=== PATIENT | male | born 1980 | race Caucasian/White ===

== ENCOUNTER 2020-05-25 02:44 | Emergency (ER) | payer OTHER ==
[2020-05-25 04:13] LABS: ALBUMIN 4.2 g/dL (3.5-5.0); ALKALINE PHOSPHATASE 70 U/L (38-126); ANION GAP 11.6 MEQ/L (5-15); BLOOD UREA NITROGEN 8 mg/dL (9-20); CHLORIDE 104 mmol/L (98-107); Calcium 9.2 mg/dL (8.4-10.2); Carbon Dioxide 26 mmol/L (22-30); Creatinine 1 0.62 mg/dL (0.66-1.25); EST GLOMERULAR FILTRATION RATE > 60.0 ML/MIN; Glucose 121 mg/dL (74-106); Potassium 3.8 mmol/L (3.5-5.1); SGOT/AST 41 U/L (17-59); SGPT/ALT 28 U/L (0-50); SODIUM 138 mmol/L (137-145); Total Protein 7.7 g/dL (6.3-8.2)
[2020-05-25 04:16] LABS: INR 1.22 (0.8-3.0); PROTIME 13.8 SECONDS (8.83-12.87)
[2020-05-25 04:19] LABS: PTT 34.2 SECONDS (24.1-36.1)
[2020-05-25 04:21] LABS: Absolute Neutrophil Ct (ANC) 4.09 (1.4-6.9); BASOPHIL % 0.4 % (0.0-0.4); Basophil (Absolute #) 0.03 (0-0.4); Eosinophil % 2.2 % (0.00-5.0); Eosinophil (Absolute #) 0.17 (0-0.5); Hematocrit 44.7 % (42-50); Hemoglobin 15.7 gm/dl (12.5-18.0); Lymphocyte (Absolute #) 2.76 (1.0-4.6); Mean Cell Volume 86.6 fl (78-100); Mean Corpuscular Hemoglobin 30.4 pg (26-32); Mean Corpuscular Hgb Concent. 35.1 g/dl (32-36); Mean Platelet Volume 11.2 fl (7.5-11.0); Monocyte (Absolute #) 0.84 (0.0-1.3); Monocytes % 10.6 % (0.0-12.0); Neutrophil % 51.8 % (36.0-66.0); Platelet Count 196 K/mm3 (150-450); Red Blood Count 5.16 M/mm3 (4.1-5.6); Red Cell Distribution Width 14.1 % (11.5-14.0); White Blood Count 7.9 K/mm3 (4.0-10.5)
[2020-05-25 04:57] VITALS: BP 147/95; PULSE 78; O2SAT 95
--- NOTE | 2020-05-25 05:03 | ERPHSYRPT ---
- History of Present Illness Time Seen by Provider: 05/25/20 02:58 Source: patient Exam Limitations: no limitations Patient Subjective Stated Complaint: pt c/o lt facial droop and eyes not blinking at the same time Triage Nursing Assessment: pt ambulated into, c/o lt facial droop and eyes not blinking at the same time. Pt's mouth looks normal on appearance, but when pt smiles, rt lip appears lower than left. Eyes appear to blinking simaltaneously but pt states, "I don't feel as if the Lt eye is closing all the way". Pt's speech is clear. Physician History: 40 years old male presented in the ER with chief complaint of difficulty closing left eye and dysesthesia left half of tongue. Patient report he woke up around 630 this evening, was not feeling well without any focal numbness tingling or weakness. He was at work almost 3 hours ago when he developed dysesthesias over the left half of tongue and also noticed that he has difficulty closing his left eye lids. No weakness in the face but some subjective feeling of facial droop on the left but no drooling or difficulty speech or swallow. He denies any visual symptoms. No focal weakness in upper or lower extremities or difficulty ambulation, of feeling dizzy lightheaded or having any history of headache. Denies fever or chills. Denies having history of similar symptoms in the past. Timing/Duration: hour(s), sudden Severity: moderate Baseline/Normal Cognition: alert 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, poor alertness Baseline Gait: walks w/o assistance Allergies/Adverse Reactions: erythromycin base Adverse Reaction (Intermediate, Verified 05/25/20 03:03) Nausea Home Medications: No Reportable Medications [No Reported Medications] 05/25/20 [History] Hx Tetanus, Diphtheria Vaccination/Date Given: No Hx Influenza Vaccination/Date Given: No Hx Pneumococcal Vaccination/Date Given: No Immunizations Up to Date: No Travel Risk - International Travel Have you traveled outside of the country in past 3 weeks: No - Coronavirus Screening Are you exhibiting any of the following symptoms?: No Close contact with a COVID-19 positive Pt in past 14-21 Days: No - Review of Systems Constitutional: No Symptoms Eyes: No Symptoms Ears, Nose, & Throat: No Symptoms Respiratory: No Symptoms Cardiac: No Symptoms Abdominal/Gastrointestinal: No Symptoms Genitourinary Symptoms: No Symptoms Musculoskeletal: No Symptoms Skin: No Symptoms Neurological: Parasthesia Psychological: No Symptoms Endocrine: No Symptoms Hematologic/Lymphatic: No Symptoms Immunological/Allergic: No Symptoms - Past Medical History Pertinent Past Medical History: Yes Neurological History: No Pertinent History ENT History: No Pertinent History Cardiac History: No Pertinent History Respiratory History: Asthma, Sleep Apnea Endocrine Medical History: No Pertinent History Musculoskeletal History: Fractures GI Medical History: No Pertinent History History: No Pertinent History Psycho-Social History: No Pertinent History Male Reproductive Disorders: No Pertinent History - Past Surgical History Past Surgical History: Yes Neuro Surgical History: No Pertinent History Cardiac: No Pertinent History Respiratory: No Pertinent History Gastrointestinal: No Pertinent History Genitourinary: No Pertinent History Musculoskeletal: Orthopedic Surgery Male Surgical History: No Pertinent History Other Surgical History: 2 ankle reconstructions, sleep apnea corrective surgery (uvula removed) - Social History Smoking Status: Former smoker Exposure to second hand smoke: No Drug Use: none Patient Lives Alone: No - Nursing Vital Signs Nursing Vital Signs: Initial Vital Signs Temperature 97.5 F 05/25/20 02:47 Pulse Rate 85 05/25/20 02:47 Respiratory Rate 20 05/25/20 02:47 Blood Pressure 161/93 05/25/20 02:47 O2 Sat by Pulse Oximetry 98 05/25/20 02:47 Pain Scale Pain Intensity 0 - Mikel Coma Scale Best Eye Response ([place]da): (4) open spontaneously Best Verbal Response (Mikel): (5) oriented Best Motor Response ([place]): (6) obeys commands [place] Total: 15 - Physical Exam General Appearance: no apparent distress, alert, anxiety Eye Exam: bilateral eye: normal inspection, PERRL, EOMI Ears, Nose, Throat Exam: normal ENT inspection Neck Exam: normal inspection, non-tender, supple, full range of motion Respiratory: normal breath sounds, lungs clear Cardiovascular: regular rate/rhythm, normal heart sounds Gastrointestinal: soft, normal bowel sounds Back Exam: normal inspection, normal range of motion, No CVA tenderness Extremity Exam: normal inspection, normal range of motion Mental Status: alert, 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, 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 Exam: normal hearing, normal speech, PERRL Coordination/Gait: normal finger to nose, normal gait, normal cerebellar function, negative Romberg's sign Motor/Sensory: no motor deficit, no sensory deficit, no pronator drift, negative Babinski's sign DTR: bicep (R): 2+, bicep (L): 2+, knee (R): 2+, knee (L): 2+ Skin Exam: normal color SpO2 Interpretation: normal SpO2: 95 O2 Delivery: Room Air - Course EKG Interpreted by Me: RATE (84), Sinus Rhythm, NORMAL AXIS, NORMAL INTERVALS, NORMAL QRS Lab/Rad Data: Laboratory Result Diagrams 05/25/20 03:57 05/25/20 03:57 Laboratory Results 05/25/20 05/25/20 05/25/20 Range/Units 03:57 03:57 03:57 WBC 7.9 (4.0-10.5) K/mm3 RBC 5.16 (4.1-5.6) M/mm3 Hgb 15.7 (12.5-18.0) gm/dl Hct 44.7 (42-50) % MCV 86.6 (78-100) fl MCH 30.4 (26-32) pg MCHC 35.1 (32-36) g/dl RDW 14.1 H (11.5-14.0) % Plt Count 196 (150-450) K/mm3 MPV 11.2 H (7.5-11.0) fl Gran % 51.8 (36.0-66.0) % Eos # (Auto) 0.17 (0-0.5) Absolute Lymphs (auto) 2.76 (1.0-4.6) Absolute Monos (auto) 0.84 (0.0-1.3) Lymphocytes % 35.0 (24.0-44.0) % Monocytes % 10.6 (0.0-12.0) % Eosinophils % 2.2 (0.00-5.0) % Basophils % 0.4 (0.0-0.4) % Absolute Granulocytes 4.09 (1.4-6.9) Basophils # 0.03 (0-0.4) PT 13.8 H (8.83-12.87) SECONDS INR 1.22 (0.8-3.0) APTT 34.2 (24.1-36.1) SECONDS Sodium 138 (137-145) mmol/L Potassium 3.8 (3.5-5.1) mmol/L Chloride 104 (98-107) mmol/L Carbon Dioxide 26 (22-30) mmol/L Anion Gap 11.6 (5-15) MEQ/L BUN 8 L (9-20) mg/dL Creatinine 0.62 L (0.66-1.25) mg/dL Estimated GFR > 60.0 ML/MIN Glucose 121 H (74-106) mg/dL POC Glucometer (74 to 106) mg/dL Calcium 9.2 (8.4-10.2) mg/dL Total Bilirubin 0.70 (0.2-1.3) mg/dL AST 41 (17-59) U/L ALT 28 (0-50) U/L Alkaline Phosphatase 70 (38-126) U/L Serum Total Protein 7.7 (6.3-8.2) g/dL Albumin 4.2 (3.5-5.0) g/dL 05/25/20 Range/Units 03:52 WBC (4.0-10.5) K/mm3 RBC (4.1-5.6) M/mm3 Hgb (12.5-18.0) gm/dl Hct (42-50) % MCV (78-100) fl MCH (26-32) pg MCHC (32-36) g/dl RDW (11.5-14.0) % Plt Count (150-450) K/mm3 MPV (7.5-11.0) fl Gran % (36.0-66.0) % Eos # (Auto) (0-0.5) Absolute Lymphs (auto) (1.0-4.6) Absolute Monos (auto) (0.0-1.3) Lymphocytes % (24.0-44.0) % Monocytes % (0.0-12.0) % Eosinophils % (0.00-5.0) % Basophils % (0.0-0.4) % Absolute Granulocytes (1.4-6.9) Basophils # (0-0.4) PT (8.83-12.87) SECONDS INR (0.8-3.0) APTT (24.1-36.1) SECONDS Sodium (137-145) mmol/L Potassium (3.5-5.1) mmol/L Chloride (98-107) mmol/L Carbon Dioxide (22-30) mmol/L Anion Gap (5-15) MEQ/L BUN (9-20) mg/dL Creatinine (0.66-1.25) mg/dL Estimated GFR ML/MIN Glucose (74-106) mg/dL POC Glucometer 102 (74 to 106) mg/dL Calcium (8.4-10.2) mg/dL Total Bilirubin (0.2-1.3) mg/dL AST (17-59) U/L ALT (0-50) U/L Alkaline Phosphatase (38-126) U/L Serum Total Protein (6.3-8.2) g/dL Albumin (3.5-5.0) g/dL - Progress Progress: re-examined Progress Note: 05/28/20 15:26 40 years old presented in the ER with subjective dysesthesia left tongue and difficulty closing left lids. No focal numbness tingling or weakness. I did not appreciate any facial droop or difficulty closing his legs. I have obtained CT head and is negative. 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 At this point per neurology recommendation patient does not need any other work-up and is stable for discharge. Discussed signs symptoms of worsening needing return to ER which she seems understanding. Counseled pt/family regarding: lab results, diagnosis, need for follow-up, rad results - Departure Departure Disposition: Home Clinical Impression: Dysesthesia Condition: Stable Critical Care Time: No Referrals: DANUTA VIGIL MD [Primary Care Provider] - Follow Up with PCP/3 days Instructions: Crow's Palsy (DC) Additional Instructions: Follow-up with primary care physician for reevaluation. Return to ER for any worsening sense of taste in the tongue/facial asymmetry or difficulty closing eye.
--- NOTE | 2020-05-25 09:08 | XRAY ---
Indication: Right-sided weakness and droopiness. Multiple contiguous axial images obtained through the head without contrast. Comparison: None Normal appearing brain parenchyma, ventricles, and bony calvarium. Visualized paranasal sinuses and mastoid air cells are clear. Impression: Normal CT head without contrast exam. Comment: Preliminary interpretation was made by [facility]. No critical discrepancy.
== END 2020-05-25 05:03 | disposition home or self-care (01) ==
LOC: ED 02:44
DX: R20.8 Other disturbances of skin sensation (principal); R29.810 Facial weakness
CPT/HCPCS: 36415; 70450; 80053; 82947; 85025; 85610; 85730; 93005; 93041; 99284; 99291; Q3014